=== PATIENT | male | born 2000 | race Asian ===

== ENCOUNTER 2019-02-14 19:02 | Emergency (ER) | payer OTHER ==
[2019-02-14] MEDS ORDERED: oxyCODONE 5 MG TABLET PO STA (19:55)
--- NOTE | 2019-02-14 20:02 | ED Physician Documentation ---
PD HPI UPPER EXT INJURY - Stated complaint Stated Complaint: LT ARM INJURY - Chief complaint Chief Complaint: Trauma Ext - History obtained from History obtained from: Patient - History of Present Illness Location: Left, Forearm Type of injury: Fall Where injury occurred: Other (playing basketball) Timing - onset: How many hours ago (1) Timing - duration: Hours (1) Timing - details: Abrupt onset Pain level max: 9 Pain level now: 9 Improved by: Rest, Ice Worsened by: Moving, Palpating Associated symptoms: Swelling. No: Weakness, Numbness, Tingling Contributing factors: No: Anticoagulated Recently seen: Not recently seen - Additonal information Additional information: pt is ambidextrous. Patient was playing basketball today when he fell, injuring the left arm. Review of Systems Constitutional: denies: Fever, Chills GI: denies: Vomiting, Diarrhea Skin: denies: Rash Musculoskeletal: denies: Neck pain, Back pain Neurologic: denies: Headache, Head injury PD PAST MEDICAL HISTORY - Past Medical History Past Medical History: No - Past Surgical History Past Surgical History: No - Present Medications Home Medications: Ambulatory Orders Medication Instructions Recorded Confirmed Hydrocodone/Acetaminophen 1 - 2 each PO Q6H PRN #14 tablet 02/14/19 [Hydrocodon-Acetaminophen 5-325] - Allergies Allergies/Adverse Reactions: Allergies Allergy/AdvReac Type Severity Reaction Status Date / Time No Known Drug Allergies Allergy Verified 02/14/19 19:13 - Social History Does the pt smoke?: No Smoking Status: Never smoker Does the pt drink ETOH?: No Does the pt have substance abuse?: No - Immunizations Immunizations are current?: Yes PD ED PE NORMAL - Vitals Vital signs reviewed: Yes - General General: Alert and oriented X 3, No acute distress - HEENT HEENT: Atraumatic, PERRL, Moist mucous membranes - Neck Neck: Supple, no meningeal sign, No bony TTP - Cardiac Cardiac: RRR - Respiratory Respiratory: No respiratory distress, Clear bilaterally - Derm Derm: Warm and dry - Extremities Extremities: Other (Tenderness and swelling to the mid left forearm. Neurovascular intact. Compartments are soft.) - Neuro Neuro: Alert and oriented X 3 - Psych Psych: Normal mood, Normal affect Results - Vitals Vitals: Vital Signs - 24 hr 02/14/19 02/14/19 19:14 20:51 Temperature 36.5 C Heart Rate 81 83 Respiratory 20 18 Rate Blood Pressure 150/85 H 137/73 H O2 Saturation 99 96 Oxygen O2 Source Room air - Rads (name of study) Left forearm x-ray Radiology: Prelim report reviewed, EMP read contemporaneously, See rad report (Comminuted midshaft radius fracture) Procedures - Splint (location) L forearm Splint applied by: Physician, Tech Type of splint: Fiberglass, Sugar tong Other: Patient tolerated well, No complications, Neurovascular intact, Good alignment, Sling provided PD MEDICAL DECISION MAKING - ED course Complexity details: reviewed results, re-evaluated patient, considered jules martin, d/w patient, d/w data management consultant ED course: 18-year-old male presents the emergency department with a comminuted midshaft radius fracture. I discussed the case with Dr. Jean, orthopedics on-call who recommends sugar tong splint and follow-up in clinic. This will likely need ORIF. Neurovascularly intact. Patient counseled regarding signs and symptoms for which I believe and urgent re-evaluation would be necessary. Patient with good understanding of and agreement to plan and is comfortable going home at this time This document was made in part using voice recognition software. While efforts are made to proofread this document, sound alike and grammatical errors may occur. Departure - Departure Disposition: 01 Home, Self Care Clinical Impression: Radius fracture Qualifiers: Encounter type: initial encounter Radius location: shaft Fracture type: closed Fracture morphology: comminuted Fracture alignment: displaced Laterality: left Qualified Code(s): S52.352A - Displaced comminuted fracture of shaft of radius, left arm, initial encounter for closed fracture Condition: Good Instructions: ED Fx Upper Ext Follow-Up: [facility] [Provider Group] - Within 1 week Prescriptions: Hydrocodone/Acetaminophen [Hydrocodon-Acetaminophen 5-325] 1 - 2 each PO Q6H PRN #14 tablet PRN Reason: pain Comments: Return if you worsen. You need to follow-up with orthopedics within the next week. This fracture will likely require surgery. I spoke with Dr. Jean from orthopedics [facility]. Discharge Date/Time: 02/14/19 20:54
--- NOTE | 2019-02-14 20:11 | XRAY Report ---
Reason: injury/fall Procedure Date: 02/14/2019 Accession Number: [id number] / [id number] Procedure: XR - Forearm LT CPT Code: Final Report FULL RESULT: EXAM: LEFT FOREARM RADIOGRAPHY EXAM DATE: 02/14/2019 07:39 PM. CLINICAL HISTORY: Injury/fall. COMPARISON: None. TECHNIQUE: 2 views. FINDINGS: Bones: Comminuted displaced fracture of the midshaft of the left radius. Joints: Normal. No effusions or subluxations in the visualized wrist or elbow joints. Soft Tissues: Normal. No soft tissue swelling. IMPRESSION: Comminuted displaced fracture of the midshaft of the left radius. RADIA
[2019-02-14 20:52] VITALS: BP 137/73
== END 2019-02-14 20:54 | disposition home or self-care (01) ==
LOC: ED 19:02
DX: S52.352A Displaced comminuted fracture of shaft of radius, left arm, initial encounter for closed fracture (principal); W01.0XXA Fall on same level from slipping, tripping and stumbling without subsequent striking against object, initial encounter; Y93.67 Activity, basketball; Y92.310 Basketball court as the place of occurrence of the external cause
CPT/HCPCS: 29105; 73090; 99283; 99284; A9270

== ENCOUNTER 2019-02-22 11:37 | Day surgery (SDC) | payer OTHER ==
[2019-02-22] MEDS ORDERED: LACTATED RINGERS 1,000 ML IV ONE ×2 (11:43→18:14)
[2019-02-22] MEDS ORDERED: CEFAZOLIN SODIUM IN 0.9 % NACL 2 GM/100 ML BAG IV ONE (12:09)
[2019-02-22] MEDS ORDERED: BUPIVACAINE 0.25% PF 30 ML VIAL ONE (13:05)
--- NOTE | 2019-02-22 13:23 | ANESTHESIA ---
Pre-Anesthesia VS, & Labs - Diagnosis left forearm fracture - Procedure ORIF left forearm Vital Signs: Temp Pulse Resp BP Pulse Ox 36.7 C 79 15 120/96 H 98 02/22/19 12:00 02/22/19 12:00 02/22/19 12:00 02/22/19 12:00 02/22/19 12:00 Height 5 ft 6 in Weight (kg) 72.57 kg Body Mass Index 25.8 - NPO >8 hours Home Medications and Allergies Allergies/Adverse Reactions: Allergies Allergy/AdvReac Type Severity Reaction Status Date / Time No Known Drug Allergies Allergy Verified 02/14/19 19:13 Anes History & Medical History - Anesthetic History Anesthesia Complications: reports: No previous complications Family history of Anesthesia Complications: Denies Family history of Malignant Hyperthermia: Denies - Medical History Cardiovascular: reports: None Pulmonary: reports: None Gastrointestinal: reports: None Urinary: reports: None Musculoskeletal: reports: Other Endocrine/Autoimmune: reports: None Skin: reports: None Smoking Status: Never smoker Psychosocial: denies: Alcohol Exam General: Alert Dental: WNL Mouth Opening: Greater than 4 Fingerbreadths Neck Mobility: Normal Mallampati classification: II Thyromental Distance: greater than 6 cm Respiratory: Lungs clear, Normal breath sounds Cardiovascular: Regular rate, Normal S1, Normal S2 Plan Anesthesia Type: General Consent for Procedure(s) Verified and Reviewed: Yes Code Status: Attempt Resuscitation ASA classification: 1-Healthy patient Is this case an emergency?: No
[2019-02-22] MEDS ORDERED: fentaNYL 250 MCG/5 ML VIAL IVP ONE (13:49)
[2019-02-22] MEDS ORDERED: PROPOFOL 200 MG/20 ML VIAL IVP ONE (13:49)
[2019-02-22] MEDS ORDERED: ONDANSETRON 4 MG/2 ML VIAL IVP ONE (13:49)
[2019-02-22] MEDS ORDERED: ROCURONIUM 50 MG/5 ML VIAL IVP ONE (13:49)
[2019-02-22] MEDS ORDERED: HYDROmorphone 1 MG/ML CARPUJECT IVP ONE (13:49)
[2019-02-22] MEDS ORDERED: MIDAZOLAM 2 MG/2 ML VIAL IVP ONE (13:49)
[2019-02-22] MEDS ORDERED: ACETAMINOPHEN 1,000 MG/100 ML 100 ML IV ONE (13:49)
[2019-02-22] MEDS ORDERED: LIDOCAINE-MPF 2% 5 ML VIAL IM ONE (13:49)
[2019-02-22] MEDS ORDERED: DEXAMETHASONE 4 MG/ML VIAL IVP ONE (13:49)
[2019-02-22] MEDS ORDERED: BUPIVACAINE 0.25% PF 30 ML VIAL SUBQ ONE (14:25)
[2019-02-22] MEDS ORDERED: KETOROLAC 15 MG/ML VIAL ONE (18:46)
[2019-02-22] MEDS: HYDROmorphone 1 MG/ML CARPUJECT ONE ×5 (18:55→19:17)
[2019-02-22] MEDS ORDERED: ONDANSETRON 4 MG/2 ML VIAL IVP PRN (18:58)
[2019-02-22] MEDS ORDERED: oxyCODONE 5 MG TABLET PO PRN (18:58)
--- NOTE | 2019-02-22 19:12 | OPERATIVE REPORT ---
Operative Report - Other Other Information/Narrative: Date of Surgery: 22 February 2019 Pre-Op Diagnosis: Left comminuted radial shaft fracture Procedure: Open reduction internal fixation of left radial shaft fracture Postop Diagnosis: Same Primary Surgeon: Cy Daley Secondary Surgeon: None Complications: None Tourniquet Time: 144 minutes EBL: 200 cc Implants: Synthes 2.0 millimeters screw x1 Synthes 3.5 mm LCP, 8 hole with 6 screws Postoperative Protocol: Sugar tong for 2 weeks. Sutures out with x-rays at 2- week follow-up. May begin elbow and wrist range of motion. Follow-up in 6 weeks with x-rays. May begin normal use of the hand at that time. No weight training or impact activities until 12 weeks. Indication For Surgery: 19-year-old male who fell while playing basketball 9 days ago and sustained the above injury. He was seen in the emergency room and. He had a normal neurovascular examination. A displaced forearm fracture require surgical fixation for normal function. The risks, benefits, and alternatives were discussed. Risks include pain, bleeding, infection, damage to nearby structures, numbness, lack of symptom relief, implant complications, nonunion, need for further surgery, DVT, PE, stroke, and . Written consent was obtained. Procedure in Detail: The patient was met in the pre-operative hold area on the day of the procedure. The operative extremity was signed and questions were answered. The patient was brought to the operating room and a general anesthe tic was administered. Supine position was used and all bony prominences were padded. Standard prepping and draping was performed. A time out confirmed patient identification, laterality, procedure, allergies, antibiotics, and images. An Esmarch was used to exsanguinate the limb and the tourniquet was elevated to 250 mmHg. Volar Papito approach to the radius was performed on the ulnar border of the mobile wad down to the radial styloid. The fascia was opened and the mobile wad was mobilized. Superficial nerves were protected. The superficial branch of the radial nerve was identified on the underside of brachial radialis and was protected throughout the case. The radial artery was retracted ulnarly with its accompanying veins throughout the case. Supinator was identified within the wound and the forearm was fully supinated. The supinator was then subperiosteally dissected off of the proximal radius. I then fully pronated the forearm and pronator teres was released from the distal fragment. FDS was also released as needed but this was mostly done by the traumatic injury. Care was taken for during the dissection to control all bleeding meticulously. The fracture was identified and periosteum and debris was cleared from the fracture site. It is been 8 days since a fracture so he is shortened. I disimpacted all fragments. There were 2 important visible intercalary fragments and one fragment that was deep within the wound that seemed less critical. I reduce the largest fragment to the distal piece clamped in place and placed a 2.0 mm lag screw that was countersunk. I then pulled traction taking care to not place any retractors posteriorly on the proximal fragment sized to protect PIN. I placed a 1 6 K wire in the proximal fragment to allow for supination and to dial in the reduction. An additional intercalary fragment was disimpacted and reduced but was too small to hold a wire or screw. This piece was held nicely once the 2 main fragments and the major intercalary pieces had been reduced. A plate was then selected and applied to the flat surface of the bone on the volar surface. The flat surface seemed to be more ulnar. An 8 hole plate was s elected because I anticipated needing to skip 2 holes due to the comminution. A single screw was placed in the most distal hole ensuring it to be centered on the bone and attempting to put it more radial to account for radial bow. I then attempted the same maneuver proximally by placing a single screw in the third hole but on imaging I found that the plate was too older once that screw was in. I therefore removed that screw translated the plate more radial placed another screw. The reduction was manually held during that time and the reduction was dialed in nicely with the plate on. I then added additional plate screws to each side until 6 cortices were obtained. Fracture was very stable. The tourniquet was released prior to final fixation. Final images were taken and accepted the length of all screws. The wound was irrigated copiously. There was no significant bleeding at time of closure. I then began by closing the fascia and found that the underlying muscle was very swollen and this made the fascia feel tense, so I removed all of my suture from the fascia and left it open to prevent a compartment syndrome. The skin was closed with 2-0 Vicryl and nylon. A sterile dressing and a splint was applied. The patient was awakened and transferred to the recovery room. In the recovery room he had PIN function.
[2019-02-22 21:54] VITALS: BP 157/89
--- NOTE | 2019-02-23 14:50 | XRAY Report ---
Reason: FX FOREARM Procedure Date: 02/22/2019 Accession Number: [id number] / [id number] Procedure: FL - OR C-Arm Procedure CPT Code: Final Report FULL RESULT: EXAM: FLUOROSCOPIC GUIDANCE EXAM DATE: 02/22/2019 05:54 PM. CLINICAL HISTORY: FX FOREARM. ORIF. COMPARISON: FOREARM LT 02/14/2019 7:36 PM. FINDINGS: Serial radiographs show fixation of the comminuted midshaft left radial fracture in near-anatomic alignment with an LCDC plate with multiple bicortical screws. IMPRESSION: Fluoroscopic guidance provided for Dr. Daley. Total fluoroscopy time: 0.2 minutes. Number of images: 11. RADIA
== END 2019-02-22 22:00 | disposition home or self-care (01) ==
LOC: SDS 11:37 → MS3 20:12 → SDS 22:00
PROVIDERS: ATTEND Orthopaedic Surgery
PROC: 0PSJ04Z Reposition Left Radius with Internal Fixation Device, Open Approach (ICD-10-PCS; principal; 2019-02-22 14:00)
DX: S52.352A Displaced comminuted fracture of shaft of radius, left arm, initial encounter for closed fracture (principal)

== ENCOUNTER 2022-02-20 12:50 | Outpatient (CLI) | payer OTHER ==
[2022-02-20 14:10] VITALS: BP 124/76
--- NOTE | 2022-02-20 14:10 | SLEEP CARE CONSULTATION ---
Information from patient questionnaire entered by Nasir Johnson. I have reviewed and concur with the information entered by Nasir Johnson. This document represents the service I personally performed and the decisions made by me, Maria A Romeo ARNP. History of Present Illness Service Date and Time: 02/20/2022 1250 Reason for Visit: New patient Chief Complaint: reports: Unrefreshed sleep, Snoring, Observed pauses in breathing, Frequent awakenings at night Date of Onset: 2YRS Usual bedtime: 10PM Time it takes to fall asleep: DEPENDS, SOMETIME CANT SLEEP AT ALL Snores at night: Yes Observed to quit breathing while asleep: Yes Sleeps alone due to snoring: No Number of times waking at night: 1-2 Reasons for waking at night: reports: Choking, Snoring, Gasping for air Toss, Turn, or Twitch while sleeping: Yes Recalls having dreams: Yes Usually gets out of bed at: 1060-2673; weekends 10-1100 Feels refreshed in the morning: No Morning headache: No Sleepy or fatigued during the day: Yes Ever fallen asleep while driving: No Takes day naps: Yes (only on night he has duty, right before he goes) Dreams during day naps: No Prior sleep studies: No Additional HPI information: I had the pleasure of seeing LENARD ROBERTSON today regarding the possibility of him having a sleep disorder. His current complaints are frequent night awakenings, observed pauses in breathing, snoring and unrefreshed sleep. He states he will sometimes wake himself up snoring loudly and like he needs air. He will also wake up with a dry throat. He states he has difficulty falling asleep initially since he switched back to day shift at work about 1.5 years ago. He states if he has duty he will only get about 2-3 hours of sleep. He has friends who have told him he snores loudly and that he will stop breathing when asleep. - Parasomnia Symptoms Ever been unable to move upon waking from sleep: No Walks in sleep: No Talks in sleep: No Ever acted out dreams in sleep: No Ever felt weak in the knees when startled or emotional: No Bothered by creepy, crawly, restless sensations in legs: No Problems with memory or concentration: No Subjective Initial [place] Sleepiness Scale score: 17 (02/20/22) Past Medical History Past Medical History: reports: Other (broken arm 2019, sx fixed) Social History The patient's occupation is a [employer]. Patient is Single and lives in . Have you smoked in the past 12 months: No Alcohol use: Yes Alcohol amount and frequency: 2-3 BOTTLES ONCE OR TWICE EVERY 2-3 MONTHS Caffeine use: Yes Caffeine amount and frequency: 1 SCOOP PREWORKOUT 4-5 TIMES A WEEK Family History Family history of sleep disordered breathing: Yes Family Hx Sleep Apnea: Father: Snoring, Sibling: Snoring Allergies and Home Medications Known drug allergies: No Drug allergies reviewed: Yes (NKDA) Home medication list reviewed: Yes (no daily medications) Review of Systems Weight gain over past 5 years: 65, intentional - trying to bulk up Cardiovascular: denies: high blood pressure Gastrointestinal: denies: heartburn Neurological: denies: headaches, head trauma Psychiatric: denies: anxiety, depression, mood disorder Ear/Nose/Throat: reports: wisdom teeth removed. denies: tonsillectomy Endocrine: denies: thyroid disease Immunologic: denies: allergies to food or environment Physical Exam Vital signs obtained and entered by: NASIR Hartman MA Blood Pressure: 124/76 (LEFT ARM) Cuff size: regular Heart Rate: 69 O2 Saturation: 98 Height: 5 ft 6 in Weight: 193 lb Body Mass Index: 31.1 BMI Classification: Obese Neck circumference: 15.75 Mouth and throat: narrow oropharynx Soft palate: long Hard palate: normal Uvula: normal Uvula visualization: 0% Mallampati Class IV Tongue: enlarged in size with teeth kline on lateral edges Tonsils: 2+ Neck: normal w/o lymphadenopathy or thyromegaly Heart: regular rate and rhythm Lungs: clear bilaterally Impression and Plan 1. Suspected Obstructive Sleep Apnea-Hypopnea Syndrome, as suggested by a history of loud and irregular snoring, observed cessation of breath while asleep, gasping or choking in sleep, frequent awakening during the night, unrefreshed sleep, and excessive daytime sleepiness. Narrow oropharynx and obesity are common predisposing factors for obstructive sleep apnea-hypopnea syndrome. I recommend proceeding to polysomnography to confirm the diagnosis and to assess severity. If the patient has significant sleep disordered breathing, a manual CPAP titration study will also be performed to find the optimal treatment pressure. I informed the patient of what the sleep studies involve and after some discussion, obtained agreement to proceed. The pathophysiology of obstructive sleep apnea-hypopnea syndrome was discussed with the patient and health risks of cardiovascular and cerebrovascular disease if not treated. Risks of drowsy driving discussed in detail and patient advised to avoid long distance driving and to head well puller at the first sign of drowsiness. Patient agreed to plan. * Schedule polysomnography * Avoid long distance driving or driving when feeling sleepy. * Avoid alcohol, sedative and muscle relaxant around bedtime. * Attempt to lose weight. * Review instructions provided by trained office staff on how to prepare for the sleep study. * Return for follow-up after sleep study completed. Counseling Topics: Weight loss health impact Visit Type: In Office Time Spent with Patient (minutes): 24 Provider Statement: I spent 100% of the Face to Face Visit with the patient with greater than 50% spent counseling the patient and coordination of care.
== END 2022-02-20 12:51 | disposition home or self-care (01) ==
LOC: SC 12:50
PROVIDERS: ATTEND Nurse Practitioner Family
DX: R06.83 Snoring (principal); R06.81 Apnea, not elsewhere classified; G47.8 Other sleep disorders; G47.10 Hypersomnia, unspecified; E66.9 Obesity, unspecified; Z68.31 Body mass index [BMI] 31.0-31.9, adult
CPT/HCPCS: 99202; 99212

== ENCOUNTER 2022-03-12 19:24 | Outpatient (CLI) | payer OTHER | END 2022-03-12 19:25 | disposition home or self-care (01) | LOC: SC 19:24 | PROVIDERS: ATTEND Nurse Practitioner Family | DX: G47.33 Obstructive sleep apnea (adult) (pediatric) (principal) | CPT/HCPCS: 95806; 95810 ==

== ENCOUNTER 2022-04-01 16:05 | Outpatient (CLI) | payer OTHER ==
--- NOTE | 2022-04-01 15:49 | SLEEP CARE CONSULTATION ---
Information from patient questionnaire entered by Apurva Jonhson. I have reviewed and concur with the information entered by Apurva Johnson. This document represents the service I personally performed and the decisions made by , Maria A Romeo ARNP. History of Present Illness Service Date and Time: 04/01/2022 1520 Initial [place] Sleepiness Scale score: 17 (02/20/22) Current [place] Sleepiness Scale score: 12 (04/01/22) Additional HPI information: LENARD ROBERTSON returns for follow up and results of the recently performed polysomnography. I explained the pathophysiology behind obstructive sleep apnea. We then spent quite a bit of time discussing different treatment options. For mild obstructive sleep apnea, surgery and oral appliance are alternatives to nasal CPAP therapy but in moderate or severe cases, nasal CPAP is the most effective and reliable treatment. Because apnea is primarily in supine position, then positional management therapy could be effective. Methods discussed such as positioning with pillows to prevent supine sleep. I reviewed the impact of weight changes on sleep apnea and strongly recommended losing weight. After some discussion, the patient opted to go with the nasal CPAP therapy. Nasal autoCPAP set at 4-15 cmH20 will be ordered with rationale explained. A manual titration study will be ordered if unable to find optimal pressure with office adjustments. I explained how CPAP machine works and what to expect when using the machine. Using CPAP every night in order to get used to it was emphasized. Patient advised to put CPAP mask on before getting into bed so as not to fall asleep wi thout CPAP. To assist acclimation to CPAP use, it could also be used for a short time during day while reading or watching TV. The patient was instructed to call the CPAP supplier to discuss any mechanical problem that may occur. If the mask given is uncomfortable or is difficult to keep on through the night even with adjustment, contact the CPAP supplier as many will replace with another mask style if notified before 30 days. If snoring or perceives is not getting enough air or too much air from the machine, notify this office. Patient counseled not drink alcohol less than 4 hours before bedtime as it can increase snoring and apnea. Patient was cautioned about risks of drowsy driving until sleepiness symptoms resolve. Patient denies drowsy driving. Sleep Study - Results Type of Sleep Study: Polysomnography (COMPLETED 03-12-22) Prior sleep studies: No Polysomnography/Home Sleep Study results: IMPRESSION: The quality of the study is good. The patient had normal sleep efficiency. The sleep architecture was abnormal for sleep fragmentation and reduced amount of time spent in slow wave sleep (N3). Respiratory monitoring showed mild obstructive sleep apnea-hypopnea (AHI = 5.7) associated with frequent arousals, oxyhemoglobin desaturation but not hypoxia (david oxygen saturation of 90%). The respiratory events occurred almost exclusively during supine sleep (supine AHI = 8.8; non-supine = 1.07). Snore was light in intensity. There was no significant periodic leg movement of sleep. Cardiac rhythm was normal sinus rhythm without significant arrhythmia. No abnormal behavior (parasomnia) observed during the night. Allergies and Home Medications Drug allergies reviewed: Yes (NKDA) Home medication list reviewed: Yes (no changes) Review of Systems Review of systems same as previous: Yes (no changes) Physical Exam Vital signs obtained and entered by: APURVA Hartman MA Height: 5 ft 6.5 in (PER PT) Weight: 190 lb (PER PT ) Body Mass Index: 30.2 BMI Classification: Obese Impression and Plan 1. Obstructive Sleep Apnea-Hypopnea Syndrome, mild, with lowest oxygen saturation of 90%. Obviously this is the cause of the patients symptoms of unrefreshed sleep, and excessive daytime sleepiness. As mentioned above, the patient will be started on nasal autoCPAP therapy with pressure set at 4-15 cmH2 O. Compliance guidelines also reviewed. A copy of compliance guidelines will be given for reference at check out. Because the apnea is more severe supine, I instructed to avoid sleeping supine using pillow positioning until able to start CPAP use. * Nasal auto CPAP therapy, pressure at 4-15 cm H2O. * Attempt to lose weight. * Avoid alcohol consumption near bedtime. * Avoid supine sleep until using CPAP. * The patient is again cautioned about driving until sleepiness completely resolves. * Return one month after CPAP obtained. I will assess response to therapy and compliance at that time. Counseling Topics: Weight loss health impact Visit Type: Telehealth Video Video Type: DoximCloudvu Patient Location: [place] Location of Provider: Office Patient agrees and consents to this telehealth visit type: Yes Patient agrees to have their insurance billed: Yes Time Spent with Patient (minutes): 15 Provider Statement: I spent 100% of the Telehealth Video Call with the patient with greater than 50% spent counseling the patient and coordination of care.
== END 2022-04-01 16:06 | disposition home or self-care (01) ==
LOC: SC 16:05
PROVIDERS: ATTEND Nurse Practitioner Family
DX: G47.33 Obstructive sleep apnea (adult) (pediatric) (principal); E66.9 Obesity, unspecified; Z68.30 Body mass index [BMI] 30.0-30.9, adult
CPT/HCPCS: 99212

== ENCOUNTER 2022-06-05 17:03 | Outpatient (CLI) | payer OTHER ==
--- NOTE | 2022-06-06 10:36 | MRI Report ---
PROCEDURE: ELBOW WO - LT INDICATIONS: ENTHESOPATHY TECHNIQUE: Noncontrast coronal proton density fast spin echo and T2 fast spin echo with fat saturation, axial an d sagittal T1 spin echo and T2 fast spin echo with fat saturation through the elbow. COMPARISON: None. FINDINGS: Image quality: Excellent. Lateral structures: The lateral ulnar collateral ligament and radial collateral ligament both appear thickened. The overlying common extensor tendon appears normal. Medial structures: The ulnar collateral ligament appears thickened with intrasubstance T2 hyperinten se signal at its medial epicondylar insertion. The overlying common flexor tendon appears thickened w ith heterogeneous intrasubstance T2 hyperintense signal at its medial epicondylar insertion. The uln ar nerve appears normal in size and signal within the cubital tunnel. Anterior structures: Evaluation of distal biceps tendon and brachialis tendon is slightly limited du e to susceptibility artifacts in proximal radial shaft. The biceps and brachialis tendons both appear grossly intact as they insert onto the proximal radius and ulna, respectively. No bicipitoradial bu rsal fluid. The median and radial neurovascular bundles appear normal; no focal muscle atrophy to han ggest nerve impingement. Posterior structures: The triceps tendon appears mildly thickened with intrasubstance T2 hyperintens e signal at its proximal olecranon insertion. No olecranon bursal fluid. Bone and cartilage: Post-ORIF changes are noted in proximal radial shaft. Mild marrow edema involving medial humeral condyle at common flexor tendon insertion is seen. No discrete fracture line. No othe r area of abnormal marrow signal. No osteochondral injuries. IMPRESSION: 1. Finding is suggestive of mild medial epicondylitis with low-grade partial-thickness tear involving proximal ulnar collateral ligament, tendinosis and low-grade intrasubstance partial thickness tear i nvolving, and flexor tendon origin. 2. Low-grade sprain involving lateral collateral ligaments. 3. Post-ORIF changes in proximal radial shaft. No acute fracture or dislocation. No definite marrow e kamille. 4. Distal triceps tendinosis at its proximal olecranon insertion. Reviewed by: Vik Guerra MD on 06/06/2022 10:35 AM PDT Approved by: Vik Guerra MD on 06/06/2022 10:35 AM PDT Station ID: [id number]
== END 2022-06-05 17:04 | disposition home or self-care (01) ==
LOC: DI 17:03
PROVIDERS: ATTEND Student in an Organized Health Care Education/Training Program
DX: S53.442A Ulnar collateral ligament sprain of left elbow, initial encounter (principal); S53.432A Radial collateral ligament sprain of left elbow, initial encounter